=== PATIENT | male | born 1955 | race Caucasian/White ===

== ENCOUNTER 2016-09-17 12:18 | Emergency (ER) | payer OTHER ==
[2016-09-17 12:58] LABS: BASO % 0.4 % (0.2-1.2); EOS # 0.1 10_X3_uL (0.0-0.5); EOS % 1.2 % (0.8-7.0); GRAN # 5.7 10_X3_uL (1.8-5.4); GRAN % 66.4 % (34.0-67.9); HEMATOCRIT 46.8 % (40-51); HEMOGLOBIN 16.2 g/dL (13.7-17.5); LYMPH # 1.4 10_X3_uL (1.3-3.6); LYMPH % 16.9 % (21.8-53.1); MEAN CORPUSCULAR HEMOGLOBIN 33.5 pg (27.0-33.0); MEAN CORPUSCULAR HGB CONC 34.6 g/dL (32.0-36.0); MEAN CORPUSCULAR VOLUME 96.9 fL (79-92); MEAN PLATELET VOLUME 11.1 fl (7.5-11.5); MONO # 1.3 10_X3_uL (0.3-0.8); MONO % 15.1 % (5.3-12.2); PLATELET COUNT 155 x10_3/uL (163-337); RED BLOOD COUNT 4.83 x10_6/uL (4.6-6.1); RED CELL DISTRIBUTION WIDTH 13.1 % (11.6-14.4); WHITE BLOOD COUNT 8.5 x10_3/uL (4.2-9.1)
[2016-09-17 13:10] LABS: BLOOD UREA NITROGEN 7 mg/dL (7-18); CALCIUM 8.4 mg/dL (8.7-10.7); CARBON DIOXIDE 24 mmol/L (21-32); CREATINE KINASE 286 U/L (35-232); CREATININE 0.9 mg/dL (0.6-1.3); GLUCOSE,RANDOM 173 mg/dL (70-99); POTASSIUM 3.5 mmol/L (3.5-5.1); SODIUM 135 mmol/L (136-145)
== END 2016-09-17 14:12 | disposition home or self-care (01) ==
LOC: ER 12:18
PROVIDERS: Family Medicine
DX: J10.1 Influenza due to other identified influenza virus with other respiratory manifestations (principal); J40 Bronchitis, not specified as acute or chronic
CPT/HCPCS: 36415; 71020; 80048; 82550; 82553; 85025; 87400; 99283